=== PATIENT | male | born 1980 | race African-American/Black ===

== ENCOUNTER 2021-05-16 07:18 | Emergency (ER) | payer OTHER ==
[~2021-05-16] VITALS: Ht 172.7 cm; Wt 79.4 kg
[2021-05-16] MEDS ORDERED: COZAAR50 MG PO (07:41)
[2021-05-16] MEDS ORDERED: LEVSIN/SL0.125 MG PO (15:30)
[2021-05-16] MEDS ORDERED: PEPCID AC20 MG PO (15:30)
[2021-05-16] MEDS ORDERED: DIPHENOXYLATE-1 EACH PO (15:30)
[2021-05-16] MEDS ORDERED: INTESTINEX680 M1 PO (15:30)
== END 2021-05-16 15:56 ==
LOC: ER 07:18
DX: R19.7 Diarrhea, unspecified (principal)

== ENCOUNTER 2022-12-29 21:11 | Emergency (ER) | payer OTHER ==
[~2022-12-29] VITALS: Ht 172.7 cm; Wt 83.9 kg
[~2022-12-29 21:11] MED LIST: COZAAR50 MG PO; DIPHENOXYLATE-1 EACH PO; INTESTINEX680 M1 PO; LEVSIN/SL0.125 MG PO; PEPCID AC20 MG PO
== END 2022-12-29 22:21 | disposition home or self-care (01) ==
LOC: ER 21:11
DX: S93.401A Sprain of unspecified ligament of right ankle, initial encounter (principal); X58.XXXA Exposure to other specified factors, initial encounter; Y93.9 Activity, unspecified; Y92.9 Unspecified place or not applicable; Y99.9 Unspecified external cause status

== ENCOUNTER 2024-08-03 19:59 | Emergency (ER) | payer OTHER ==
[~2024-08-03] VITALS: Ht 172.7 cm; Wt 81.6 kg
[2024-08-03] MEDS ORDERED: CEFTRIAXONE SODIUM 1,000 MG VIAL IM STA (20:45)
[2024-08-03] MEDS ORDERED: ORPHENADRINE CITRATE 30 MG/ML AMPUL IM STA (20:46)
[2024-08-03] MEDS ORDERED: DEXAMETHASONE SODIUM PHOSPHATE 4 MG/ML VIAL IM STA (20:46)
[2024-08-03 22:02] LABS: HEMATOCRIT 40.1 % (39.0-48.0); HEMOGLOBIN 13.5 g/dL (13-16.00); MEAN CORPUSCULAR HEMOGLOBIN 30.4 pg (27.00-32.0); MEAN CORPUSCULAR HGB CONC 33.8 g/dl (32.0-36.0); PLATELET COUNT 228 K/uL (150-450); RED BLOOD COUNT 4.45 M/uL (4.00-6.00)
[2024-08-03 22:04] LABS: PH,URINE 5.5 (5.0-8.0); URINE APPEARANCE Clear; URINE BILIRRUBIN Negative (NEGATIVE); URINE BLOOD Large; URINE COLOR Yellow; URINE GLUCOSE Negative (NEGATIVE); URINE KETONE Negative (NEGATIVE); URINE LEUKOCYTE Negative; URINE NITRATE Negative; URINE PROTEIN Negative (NEGATIVE); URINE UROBILINOGEN 0.2 E.U./dl
[2024-08-03 22:05] LABS: URINE BACTERIA 7.5 uL (0.0-1933); URINE RBC 801.8 uL (0.0-20.8); URINE WBC 5.6 uL (0.0-23.2)
== END 2024-08-03 22:46 | disposition home or self-care (01) ==
LOC: ER 20:00
DX: N39.0 Urinary tract infection, site not specified (principal); R31.9 Hematuria, unspecified
CPT/HCPCS: 36415; 96372; 99282; J0696; J1100; J2360